=== PATIENT | female | born 2000 | race Caucasian/White ===

== ENCOUNTER 2020-10-30 21:58 | Emergency (ER) | payer SELFPAY ==
[~2020-10-30] VITALS: Ht 172.7 cm; Wt 76.0 kg
[2020-10-30 21:59] VITALS: BP 138/71
[2020-10-30] MEDS ORDERED: birth control tab PO (22:05)
== END 2020-10-31 02:15 | disposition left against medical advice (07) ==
LOC: M ED 21:58
DX: Z53.21 Procedure and treatment not carried out due to patient leaving prior to being seen by health care provider (principal)

== ENCOUNTER → 2020-11-23 | Outpatient (REF) | payer OTHER ==
[~2020-11-23] MED LIST: birth control tab PO
== END ==
LOC: M LAB REF 11:39
PROVIDERS: ATTEND Nurse Practitioner Family
DX: R30.0 Dysuria (principal)

== ENCOUNTER 2020-12-16 20:54 | Emergency (ER) | payer OTHER ==
[~2020-12-16] VITALS: Ht 172.7 cm; Wt 74.3 kg
[2020-12-16] MEDS ORDERED: VIST25CA PO (21:08)
[2020-12-16] MEDS ORDERED: PROZ10CA7 PO (21:08)
[2020-12-16 22:21] LABS: BASO % 0.3 % (0.0-1.0); EOS # 0.1 10^3/uL (0.0-0.5); EOS % 0.9 % (0.0-3.0); HEMATOCRIT 36.9 % (36.0-47.0); HEMOGLOBIN 11.7 g/dl (12.0-15.5); LYMPH # 2.1 10^3/uL (1.5-5.0); LYMPH % 35.4 % (24.0-44.0); MEAN CORPUSCULAR HEMOGLOBIN 26.4 pg (27.0-33.0); MEAN CORPUSCULAR HGB CONC 31.7 g/dl (32.0-36.5); MEAN CORPUSCULAR VOLUME 83.1 fl (80.0-96.0); MONO # 0.6 10^3/uL (0.0-0.8); MONO % 9.4 % (2.0-8.0); NEUTROPHILS # 3.2 10^3/uL (1.5-8.5); NEUTROPHILS % 53.8 % (36.0-66.0); PLATELET COUNT, AUTOMATED 272 10^3/uL (150-450); RED BLOOD COUNT 4.44 10^6/uL (4.00-5.40); WHITE BLOOD COUNT 5.9 10^3/uL (4.0-10.0)
[2020-12-16 22:51] LABS: ALBUMIN 3.9 GM/DL (3.2-5.2); ALT/SGPT 19 U/L (12-78); BILIRUBIN,DIRECT 0.1 MG/DL (0.0-0.2); BILIRUBIN,TOTAL 0.3 MG/DL (0.2-1.0); BLOOD UREA NITROGEN 7 MG/DL (7-18); CALCIUM LEVEL 8.9 MG/DL (8.5-10.1); CARBON DIOXIDE LEVEL 25 MEQ/L (21-32); CHLORIDE LEVEL 108 MEQ/L (98-107); CREATININE FOR GFR 0.85 MG/DL (0.55-1.30); GLUCOSE, FASTING 84 MG/DL (70-100); HCG, SERUM QUANTITATIVE < 1.0 MIU/ML; LIPASE 61 U/L (73-393); POTASSIUM SERUM 4.1 MEQ/L (3.5-5.1); SODIUM LEVEL 139 MEQ/L (136-145); TOTAL PROTEIN 7.7 GM/DL (6.4-8.2)
[2020-12-16] MEDS ORDERED: GI COCKTAIL 50ML BTL(HYOSCYAMINE/MAALOX/LIDOCAINE VISCOUS)(1:3:1) PO ONE (23:45)
[2020-12-16] MEDS ORDERED: ONDANSETRON 4 MG ORAL DISINTEGRATING TAB PO ONE (23:45)
[2020-12-17] MEDS ORDERED: ONDA4TAB6 PO (00:27)
[2020-12-17] MEDS ORDERED: PEPC1TAB5 PO (00:27)
[2020-12-17 00:47] VITALS: BP 116/68
== END 2020-12-17 00:50 | disposition home or self-care (01) ==
LOC: M ED 20:54
DX: K29.00 Acute gastritis without bleeding (principal)
CPT/HCPCS: 36415; 80048; 80076; 81001; 83690; 84702; 85025; 99283; Q0162

== ENCOUNTER → 2021-03-31 | Outpatient (CLI) | payer OTHER ==
[~2021-03-31] MED LIST changes: +ONDA4TAB6 PO; +PEPC1TAB5 PO; +PROZ10CA7 PO; +VIST25CA PO
--- NOTE | 2021-03-31 15:48 | REP ---
INDICATION: RT HIP PAIN, STRESS FX. Possible stress fracture. COMPARISON: No available comparison imaging. TECHNIQUE: And coronal T1 and fat sat T2 images of both hips are acquired. In addition smaller [id number] high-resolution axial, coronal, and sagittal T2 fat sat images are acquired. FINDINGS: Cortical and medullary bone signal intensity are normal in the proximal femurs bilaterally. There is no evidence to suggest proximal femoral stress fracture or avascular necrosis. Bone signal intensity is also normal in the visualized bony pelvic ring. There is no evidence of significant hip joint effusion on either side. No juxta-articular cyst or mass is seen. Ligamentum teres is intact in appearance. There is no evidence to suggest acetabular labral cartilage disruption. Head neck junction morphology is normal bilaterally. There is a tiny subcortical cyst at the head neck junction inferiorly and medially on the right, 3 mm in diameter. The uterus is tipped somewhat to the right. Normal right ovary is seen. Urinary bladder is unremarkable. Hamstring tendon insertion sites appear normal and symmetric. IMPRESSION: Tiny subcortical cysts noted incidentally at the head neck junction of the right proximal femur. No evidence to suggest stress fracture, avascular necrosis, or labral disruption. <Electronically signed by Nikhil Mcnally > 03/31/21 [id number]
== END ==
LOC: M PLARAD 09:32
PROVIDERS: ATTEND Technician, Other
DX: M85.651 Other cyst of bone, right thigh (principal)

== ENCOUNTER 2021-05-26 12:04 | Inpatient (IN) | payer OTHER ==
[~2021-05-26] VITALS: Ht 172.7 cm; Wt 74.3 kg
--- OUTSIDE RECORDS SUMMARY | 2021-05-26 12:11 | CCD ---
Author Author [facility] Organization [facility] Address Unknown Phone Unavailable Support Name Relationship Address Phone BLANCHE WU Next Of Kin [address] [place] [address] [facility] Next Of Kin [address] [place] [address] Unavailable Re-disclosure Warning The records that you are about to access may contain information from federally-assisted alcohol or drug abuse programs. If such information is present, then the following federally mandated warning applies: This information has been disclosed to you from records protected by federal confidentiality rules (42 CFR part 2). The federal rules prohibit you from making any further disclosure of this information unless further disclosure is expressly permitted by the written consent of the person to whom it pertains or as otherwise permitted by 42 CFR part 2. A general authorization for the release of medical or other information is NOT sufficient for this purpose. The Federal rules restrict any use of the information to criminally investigate or prosecute any alcohol or drug abuse patient.The records that you are about to access may contain highly sensitive health information, the redisclosure of which is protected by Article 27-F of the [facility] Public Health law. If you continue you may have access to information: Regarding HIV / AIDS; Provided by facilities licensed or operated by the [facility] Office of Mental Health; or Provided by the [facility] Office for People With Developmental Disabilities. If such information is present, then the following [facility] mandated warning applies: This information has been disclosed to you from confidential records which are protected by state law. State law prohibits you from making any further disclosure of this information without the specific written consent of the person to whom it pertains, or as otherwise permitted by law. Any unauthorized further disclosure in violation of state law may result in a fine or mcc sentence or both. A general authorization for the release of medical or other information is NOT sufficient authorization for further disc losure. Immunizations Vaccine Date Status Description Data Source(s) COVID-19 VACCINE Pfizer 12/27/2020 12:00:00 AM EDT completed [facility] Vaccine Series Complete: NOThis Data was Submitted to [facility] Via [email or web address]. Medications No Information Insurance Providers Payer name Policy type / Coverage type Policy ID Covered democrat ID Covered democrat's relationship to caldwell Policy Caldwell Plan Information [facility] ACTIVE DUTY [id number] SP [id number] SELF PAY ONLY UNK SP UNK Problems, Conditions, and Diagnoses No Information Surgeries/Procedures No Information Results No Information Social History No Information
[2021-05-26 12:42] LABS: HEMATOCRIT 39.6 % (36.0-47.0); HEMOGLOBIN 12.8 g/dl (12.0-15.5); MEAN CORPUSCULAR HEMOGLOBIN 28.3 pg (27.0-33.0); MEAN CORPUSCULAR HGB CONC 32.3 g/dl (32.0-36.5); MEAN CORPUSCULAR VOLUME 87.6 fl (80.0-96.0); PLATELET COUNT, AUTOMATED 311 10^3/uL (150-450); RED BLOOD COUNT 4.52 10^6/uL (4.00-5.40); WHITE BLOOD COUNT 7.4 10^3/uL (4.0-10.0)
[2021-05-26 13:14] LABS: AMPHETAMINES LEVEL URINE NEGATIVE (NEGATIVE); BARBITURATES URINE NEGATIVE (NEGATIVE); BENZODIAZEPINES URINE NEGATIVE (NEGATIVE); CANNABINOIDS URINE NEGATIVE (NEGATIVE); COCAINE METABOLITE URINE NEGATIVE (NEGATIVE); METHADONE URINE NEGATIVE (NEGATIVE); OPIATES URINE NEGATIVE (NEGATIVE); PHENCYCLIDINE URINE NEGATIVE (NEGATIVE)
[2021-05-26 13:25] LABS: ACETAMINOPHEN LEVEL < 2.0 UG/ML (10.0-30.0); ALBUMIN 3.9 GM/DL (3.2-5.2); ALT/SGPT 22 U/L (12-78); BILIRUBIN,DIRECT < 0.1 MG/DL (0.0-0.2); BILIRUBIN,TOTAL 0.3 MG/DL (0.2-1.0); BLOOD UREA NITROGEN 8 MG/DL (7-18); CARBON DIOXIDE LEVEL 27 MEQ/L (21-32); CHLORIDE LEVEL 109 MEQ/L (98-107); CREATININE FOR GFR 0.86 MG/DL (0.55-1.30); ETHYL ALCOHOL (ETHANOL) 0.006 % (0.000-0.010); GLUCOSE, FASTING 84 MG/DL (70-100); SALICYLATE LEVEL < 1.7 MG/DL (5.0-30.0); SODIUM LEVEL 142 MEQ/L (136-145); THYROID STIMULATING HORMONE 0.356 uIU/ML (0.463-3.98); TOTAL PROTEIN 7.8 GM/DL (6.4-8.2)
[2021-05-26] MEDS ORDERED: IBUPROFEN 600MG TAB PO ONE (13:45)
[2021-05-26 14:01] LABS: HCG, SERUM QUALITATIVE NEGATIVE (NEGATIVE)
--- OUTSIDE RECORDS SUMMARY | 2021-05-26 14:11 | CCD ---
Author Author [facility] Organization [facility] Address Unknown Phone Unavailable Support Name Relationship Address Phone BLANCHE WU Next Of Kin [address] [place] [address] [facility] Next Of Kin [address] [place] [address] Unavailable Re-disclosure Warning The records that you [...] is protected by Article 27-F of the [facility] Public Health law. If you continue you may have access to information: Regarding HIV / AIDS; Provided by facilities licensed or operated by the [facility] Office of Mental Health; or Provided by the [facility] Office for People With Developmental Disabilities. If such information is present, then the following [facility] mandated warning applies: This information has been [...] law may result in a fine or retirement sentence or both. A general authorization for the release of medical or other information is NOT sufficient authorization for further disc losure. Immunizations Vaccine Date Status Description Data Source(s) COVID-19 VACCINE Pfizer 12/27/2020 12:00:00 AM EDT completed [facility] Vaccine Series Complete: NOThis Data was Submitted to [facility] Via [employer]. Medications No Information Insurance Providers Payer name Policy type / Coverage type Policy ID Covered alliance party ID Covered alliance party's relationship to caldwell Policy Caldwell Plan Information [facility] ACTIVE DUTY [id number] SP [id number] SELF PAY ONLY UNK SP UNK Problems, Conditions, and Diagnoses No Information Surgeries/Procedures No Information Results No Information Social History No Information
[2021-05-26] MEDS ORDERED: HOME MED LIST COMPLETE! XX SCH (18:25)
--- NOTE | 2021-05-26 18:57 | MHIPNPDOC ---
[facility] Progress Note Progress Note DATE OF SERVICE: 05/26/21 Patient presented by PSA, meets criteria for involuntary admission. Brought in by EMS from [facility] appointment endorsed suicidal ideation with intent and plan to overdose on OTC medications. See PSA note for details. Vital Signs Vital Signs Date Time Temp Pulse Resp B/P (MAP) Pulse Ox O2 Delivery O2 Flow Rate FiO2 05/26/21 18:13 97.5 64 16 125/60 (81) 100 Room Air Laboratory Data 24H Labs Laboratory Tests 2 05/26/21 12:15: Nucleated Red Blood Cells % (auto) 0.0, Anion Gap 6L, Calcium Level 9.0, Total Bilirubin 0.3, Direct Bilirubin < 0.1, Aspartate Amino Transf (AST/SGOT) 17, Alanine Aminotransferase (ALT/SGPT) 22, Alkaline Phosphatase 54, Total Protein 7.8, Albumin 3.9, Albumin/Globulin Ratio 1.0L, Thyroid Stimulating Hormone (TSH) 0.356L, Human Chorionic Gonadotropin, Qual NEGATIVE, Salicylates Level < 1.7L, Urine Opiates Screen NEGATIVE, Urine Methadone Screen NEGATIVE, Acetaminophen Level < 2.0L, Urine Barbiturates Screen NEGATIVE, Urine Phencyclidine Screen NEGATIVE, Urine Amphetamines Screen NEGATIVE, Urine Benzodiazepines Screen NEGATIVE, Urine Cocaine Metabolite Screen NEGATIVE, Urine Cannabinoids Screen NEGATIVE, Ethyl Alcohol Level 0.006 CBC/BMP Laboratory Tests 05/26/21 12:15 Current Medications Current Medications Medications (Trade) Dose Ordered Sig/Audra Route PRN Reason Start Time Stop Time Status Last Admin Dose Admin Home Med (Home Med List Complete!) ASDIRECTED XX 05/26/21 18:25 05/26/21 18:24 DC Allergies Coded Allergies: No Known Allergies (Unverified , 10/30/20) PITO CHILDS MD May 26, 2021 18:57
--- NOTE | 2021-05-27 06:57 | ECGEPIP ---
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
[2021-05-27 16:30] LABS: RSV AMPLIFICATION NEGATIVE (NEGATIVE)
[2021-05-28] MEDS ORDERED: ACETAMINOPHEN TAB 650MG DOSE (2X325MG) PO PRN (00:15)
[2021-05-28] MEDS ORDERED: MOM 30ML SUSPENSION UDC PO PRN (00:15)
[2021-05-28] MEDS ORDERED: MAALOX 30 ML SUSP *UDC PO PRN (00:15)
[2021-05-28] MEDS ORDERED: traZODone 50 MG TAB PO PRN (00:15)
--- OUTSIDE RECORDS SUMMARY | 2021-05-28 00:43 | CCD ---
Author Author [facility] Organization [facility] Address Unknown Phone Unavailable Support Name Relationship Address Phone BLANCHE WU Next Of Kin [address] [place] [address] [facility] Next Of Kin [address] [place] [address] Unavailable Re-disclosure Warning The records that you [...] is protected by Article 27-F of the [facility] Public Health law. If you continue you may have access to information: Regarding HIV / AIDS; Provided by facilities licensed or operated by the [facility] Office of Mental Health; or Provided by the [facility] Office for People With Developmental Disabilities. If such information is present, then the following [facility] mandated warning applies: This information has [...] Series Complete: NOThis Data was Submitted to [facility] Via [employer]. Medications No Information Insurance Providers Payer name Policy type / Coverage type Policy ID Covered alliance party ID Covered alliance party's relationship to caldwell Policy Caldwell Plan Information [facility] ACTIVE DUTY [id number] SP [id number] SELF PAY ONLY UNK SP UNK Problems, Conditions, and Diagnoses No Information Surgeries/Procedures No Information Results No Information Social History No Information
[2021-05-28 03:20] VITALS: BP 128/59
[2021-05-28] MEDS ORDERED: NICOTINE POLACRILEX 2 MG GUM PO PRN (09:00)
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
[2021-05-28] MEDS: VENLAFAXINE **XR** 37.5 MG CAPSULE PO SCH (09:55)
[2021-05-28 18:38] VITALS: BP 119/73
[2021-05-29] MEDS: VENLAFAXINE **XR** 37.5 MG CAPSULE PO SCH (08:37)
[2021-05-29 10:32] LABS: FREE T4 1.34 NG/DL (0.78-1.33); THYROID STIMULATING HORMONE 0.558 uIU/ML (0.463-3.98)
--- NOTE | 2021-05-29 13:43 | MHIPNPDOC ---
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 Patient reports stressors including issues with leadership being "toxic", hectic work schedule, states family unsupportive and "make fun of me for asking for help", reports being overwhelmed and go to the point where she wanted to take her life by overdosing on OTC pills. Patient was seen by [facility], by therapist Lt. Rhoades who is new and made suicidal statements and was brought in by [facility], states "I will never tell them again, since I will be brought here". Also reports "I don't want to leave my room, because I don't like people, they always push me to go out and do things". States she doesn't like people because they are going to abandon her or disappoint her. Reports mother was "not there mentally" nd father was always working so never home, states she had to take care of household. Reports had one suicide attempt 10 months ago by overdose on Quil and didn't tell anyone, "nobody knows". Interval: Charts reviewed, patient has not been attending groups, states she prefers to stay in her room and read her book, does not think the increase will be helpful for her, states having space away from her leadership has helped calm her mood, also feels she is responding well to medications without any side effects reported, " I actually like it how makes me feel". States being here is giving her space to think about how she does not reach out to her supports and should do so, was encouraged to attend groups. Reports mood and appetite are good, no acute physical complaints. VITAL SIGNS: See below. NEW TEST RESULTS: Repeat TSH within normal limits, T4 borderline at 1.34, denies any increased agitation. CURRENT MEDICATIONS: See below. MENTAL STATUS EXAMINATION: Patient is a 20-year old female, who is in no acute distress, good hygiene, good eye contact Speech: Is normal rate rhythm and volume. Language skills are good Thought processes including: Linear and logical, future oriented. Thought content: Denies suicidal thoughts today. Abstract reasoning, and computation: Good description of associations: Good Description of abnormal or psychotic thoughts: Denies Judgment: Improving. Insight: Fair Orientation: x4 Recent and remote memory: Good. Attention span and concentration: Within normal limits. Language: Azeri. Fund of knowledge: Average based on interview. Mood: "better". Affect: Mildly irritable, full, mood congruent, appropriate. DIAGNOSES: Major depressive disorder, recurrent, moderate Unspecified personality disorder, cluster A/B traits Tobacco use disorder R/O hypothyroidism ASSESSMENT: Patient appears less dysthymic, still somewhat irritable, reports improvement in mood and anxiety symptoms in context of having time away from her unit and leadership. Today is not endorsing suicidal ideations and reporting good response to medication without side effects, which she plans on continuing, but has not been attending groups and was encouraged to do so, if continues to improve there is a possibility for discharge tomorrow or midweek. There is a possibility patient might be minimizing symptoms, and further evaluation is needed to assure safety and adequate safety planning. MANAGEMENT PLAN: Continue medications, no changes. TIME SPENT: 15 minutes. Vital Signs Vital Signs Date Time Temp Pulse Resp B/P (MAP) Pulse Ox O2 Delivery O2 Flow Rate FiO2 05/28/21 18:38 99.2 75 16 119/73 (88) 05/28/21 03:20 99 Room Air Laboratory Data 24H Labs Laboratory Tests 2 05/29/21 09:41: Thyroid Stimulating Hormone (TSH) 0.558, Free Thyroxine 1.34H Current Medications Current Medications Medications (Trade) Dose Ordered Sig/Audra Route PRN Reason Start Time Stop Time Status Last Admin Dose Admin Acetaminophen (Tylenol Tab) 650 mg Q6HP PRN PO HEADACHE or MILD DISCOMFORT 05/28/21 00:15 Al Hydrox/Mg Hydrox/Simethicone (Mylanta) 30 ml Q4HP PRN PO HEARTBURN/INDIGESTION 05/28/21 00:15 Home Med (Home Med List Complete!) ASDIRECTED XX 05/26/21 18:25 05/26/21 18:24 DC Magnesium Hydroxide (Milk Of Magnesia) 30 ml DAILYPRN PRN PO CONSTIPATION 05/28/21 00:15 Nicotine (Nicorette) 2 mg Q4HP PRN PO NICOTINE WITHDRAWAL 05/28/21 09:00 Trazodone HCl (Desyrel) 50 mg QHSP PRN PO INSOMNIA 05/28/21 00:15 Venlafaxine HCl (Effexor Xr) 37.5 mg DAILY PO 05/28/21 09:00 05/29/21 08:37 Allergies Coded Allergies: No Known Allergies (Unverified , 10/30/20) PITO CHILDS MD May 29, 2021 13:43
[2021-05-29 16:08] VITALS: BP 109/62
--- NOTE | 2021-05-29 20:35 | HPEPDOC ---
General Date of Admission May 28, 2021 at 00:15 Date of Service: May 29, 2021 Chief Complaint The patient is a 20-year-old female admitted with a reason for visit of Unspecified Depressive Disorder. 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 She is being examined here for medical history and physical. Denied any medical complaints. Home Medications No Active Prescriptions or Reported Meds Allergies Coded Allergies: No Known Allergies (Unverified , 10/30/20) Past Medical History Medical History Anxiety, depression with 1 suicidal attempt, PTSD. Surgical History none Family History Mother with addiction to pain meds and psychiatric problems. Social History * Smoker: other (vape) Alcohol: Denies Drugs: denies A-FIB/CHADSVASC A-FIB History Current/History of A-Fib/PAF?: No Age/Risk Factor Scoring CHADSVASC: CHADSVASC Response (Comments) Value Age Risk Factor Age < 65 years old 0 Gender Risk Factor Female 1 Hx of CHF No 0 Hx of HTN No 0 Hx of Stroke/TIA/or VTE No 0 Hx of Diabetes No 0 Hx of Vascular Disease No 0 Total 1 Review of Systems Constitutional: Denies: Chills, Fever, Night Sweats Eyes: Denies: Pain, Vision change ENT: Denies: Head Aches, Ear Pain, Dysphagia Skin: Denies: Rash, Lesions, Breakdown Pulmonary: Denies: Dyspnea, Cough Cardiovascular: Denies: Chest Pain, Palpitations, Orthopnea, Paroxysmal Noc. Dyspnea, Lt Headedness Gastrointestinal: Denies: Nausea, Vomiting, Abdominal Pain, Diarrhea Psych: Reports: Depression Physical Examination General Exam: Positive: Alert, Cooperative, No Acute Distress Eye Exam: Positive: PERRLA, Conjunctiva & lids normal, EOMI; Negative: Sclera icteric ENT Exam: Positive: Atraumatic, Mucous membr. moist/pink, Pharynx Normal Neck Exam: Positive: Supple; Negative: JVD, thyromegaly Chest Exam: Positive: Clear to auscultation, Normal air movement Heart Exam: Positive: Rate Normal, Regular Rhythm, Normal S1, Normal S2; Negative: Murmurs, Rubs Abdomen Exam: Positive: Normal bowel sounds, Soft; Negative: Tenderness Extremity Exam: Negative: Clubbing, Cyanosis, Edema Psych Exam: Positive: Memory Intact, Oriented x 3 Vital Signs Vital Signs Date Time Temp Pulse Resp B/P (MAP) Pulse Ox O2 Delivery O2 Flow Rate FiO2 05/29/21 16:08 97.6 75 16 109/62 (78) 98 Room Air Laboratory Data Labs 24H Laboratory Tests 2 05/29/21 09:41: Thyroid Stimulating Hormone (TSH) 0.558, Free Thyroxine 1.34H Assessment/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 She is being examined here for medical history and physical. Depression As per psychiatry No active medical issues at this time. Plan / VTE VTE Prophylaxis Ordered?: No (freely ambulatory. ) Melany Parkinson MD May 29, 2021 20:23
[2021-05-30 06:13] VITALS: BP 110/61
[2021-05-30] MEDS: VENLAFAXINE **XR** 37.5 MG CAPSULE PO SCH (08:05)
[2021-05-30] MEDS ORDERED: VENL37.598 PO (08:24)
[2021-05-30] MEDS ORDERED: NICO2GUM PO (08:24)
[2021-05-30] MEDS ORDERED: TRAZ-252 PO (08:24)
--- NOTE | 2021-05-30 14:14 | MHDSPDOC ---
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 Patient reports stressors including issues with leadership being "toxic", hectic work schedule, states family unsupportive and "make fun of me for asking for help", reports being overwhelmed to the point where she wanted to take her life by overdosing on OTC pills. Patient was seen by [facility], by therapist Lt. Rhoades who is new and made suicidal statements and was brought in by [facility], states "I will never tell them again, since I will be brought here". Also reports "I don't want to leave my room, because I don't like people, they always push me to go out and do things". States she doesn't like people because they are going to abandon her or disappoint her. Reports mother was "not there mentally" and father was always working so never home, states she had to take care of household. Reports had one suicide attempt 10 months ago by overdose on 10 NyQuil and didn't tell anyone, "nobody knows". Vital signs: See below Consultants involved: See medical H&P by hospitalist Treatment and progress on the unit: Patient was admitted to the [facility] on a legal status and was afforded the following treatment modalities: 1. Individual therapy 2. Group therapy 3. Medication management 4. Milieu therapy 5. Safe environment Hospital course: Patient was admitted to the [facility] on a legal status. Was medically cleared prior to coming up to the [facility]. Patient initially reported symptoms of low mood, inadequate sleep, no energy, anhedonia, suicidal thoughts in context of stressors at work, also reporting similar symptoms a 10 months ago. Patient was started on Effexor 37.5 mg extended release, reported having some time away from leadership, started the medication going to groups, gain coping skills and wearing identify supports before she gets back to that point has been helpful for her and she has not been having suicidal thoughts after admission. Denies any medication side effects and found medications beneficial and tolerated them well. Denies mood anxiety and intrusive thoughts which improved with treatment. Patient attended groups daily during stay. Patient symptoms improved with treatment. On day of discharge patient denied depression, anxiety, insomnia, suicidal or homicidal ideations intent or plan, hallucinations, delusions. Patient was discharged home with follow-up. Patient felt safe for discharge. Was offered continued stay on voluntary admission but refused. Safety plan created to address thoughts of ingestion and overdose, to reduce [place] to pill collections, medicated liquid such as NyQuil or [id number] medications. Discharge assessment: On today's interview patient is alert and oriented, dressed appropriately. She is bubbly, smiling and was interacting with her roommate before entering the room, has been seen in the social media interacting socially laughing and playing games, has been going to most of her groups. States she was frustrated on admission due to the situation and that she would reach out to her sports good leadership if she was feeling suicidal and that those statements about not talking to others were made out of anger and frustration on admission. She has felt a benefit for inpatient stay. Hygiene and grooming is well-kept. Smiles on approach and is pleasant and engaged on interview. Denies depression and anxiety. Denies suicidal homicidal ideation, intent or planning. Denies and is not observed with celso or psychotic symptoms of delusions, hallucinations, bizarre thinking, obsessions, paranoia, ruminations, illogical thoughts, flight of ideas or having poor insight or judgment. Patient has normal mentation, declines further hospitalization of voluntary status and meets criteria for discharge today, patient encouraged to return the hospital if symptoms worsen or change and encouraged to call unit if they feel they need provider's questions to be answered or help with medications or care. Mental status: Patient is a 20-year old female, who is in no acute distress, good hygiene, good eye contact, hospital clothing with good hygiene Speech: Is normal rate rhythm and volume. Language skills are good Thought processes including: Linear and logical, future oriented. Thought content: Denies suicidal thoughts, intent or plan. Denies any homicidal thoughts, intent or plan. abstract reasoning, and computation: Good description of associations: Good Description of abnormal or psychotic thoughts: Denies Judgment: Good Insight: Good Orientation: x4 Recent and remote memory: Good. Attention span and concentration: Within normal limits. Language: Greenlandic. Fund of knowledge: Average based on interview. Mood: "good". Affect: Bubbly, smiling, mood congruent, full, appropriate Medications on discharge: see medication reconciliation: CSSRS on discharge: Wish to be : No nonspecific active suicidalthoughts: No lifetime attempts: 1x 10 months ago by Nolan Greenwood interrupted attempts: 0 aborted attempts: 0 preparatory acts or behavior: None Taking into consideration safety state, status, modifiable, non-modifiable risk factors patient is at low risk on discharge for suicide according to [place] suicide evaluation. PLAN/FOLLOWUP ARRANGEMENTS: Follow Up Care Education Label * Mental Health Appt 1 * Additional information [facility]/DRUM1 LEE JURADO [id number] FTR/30 [facility] CL/DRUM1 HEBER NGUYEN [id number]@0801 FTR/60 [facility] CL/DRUM1 ABDIEL MCCARTHY [id number]@0915 FTR/30 [facility] CL/DRUM1 HEBER NGUYEN [id number]@0801 FTR/60 [facility] CL/DRUM1 HEBER NGUYEN [id number]@0801 FTR/60 [facility] CL/DRUM1 HEBER NGUYEN [id number]@1430 FTR/60 [facility] CL/DRUM1 CHERELLE RHOADES [id number]@0900 FTR/60 PENDING Follow Up Care Education Label * Medical * Medical Follow Up [facility] * Established With This Provider Yes * Therapist . URVASHI * Date Jun 02, 2021 * Time 10:40 * Address of Clinic or Practice [facility]/ [address] * The amount of time spent in the coordination of care for this patient was approximately 25 minutes. ETOH/Disorder Med Rx ETOH/DRUG DISORDER RX: Offrd @ d/c & pt refused Vital Signs/I&Os Vital Signs Date Time Temp Pulse Resp B/P (MAP) Pulse Ox O2 Delivery O2 Flow Rate FiO2 05/30/21 06:13 97.5 67 12 110/61 (77) 100 Room Air Medications Scheduled Venlafaxine HCl (Venlafaxine HCl ER) 37.5 Mg Cap.er.24h, 37.5 MG PO DAILY for depression, #7 Scheduled PRN Nicotine Polacrilex (Nicotine Gum) 2 Mg Gum, 2 MG PO Q4HP PRN for NICOTINE WITHDRAWAL, #21 Trazodone HCl (Trazodone HCl) 50 Mg Tablet, 50 MG PO QHSP PRN for INSOMNIA, #7 Allergies Coded Allergies: No Known Allergies (Unverified , 10/30/20) PITO CHILDS MD May 30, 2021 14:14
== END 2021-05-30 12:30 | disposition home or self-care (01) | DRG 885 ==
LOC: M ED 12:04 → M ED INP 05-28 00:15 → M PSY 05-28 02:30
PROVIDERS: ADMIT Student in an Organized Health Care Education/Training Program; ATTEND Student in an Organized Health Care Education/Training Program
DX: F33.1 Major depressive disorder, recurrent, moderate (principal); R45.851 Suicidal ideations; E03.9 Hypothyroidism, unspecified; F17.200 Nicotine dependence, unspecified, uncomplicated; Z73.1 Type A behavior pattern

== ENCOUNTER 2022-03-04 15:01 | Outpatient (CLI) | payer OTHER ==
[~2022-03-04] VITALS: Ht 172.7 cm; Wt 96.0 kg
[~2022-03-04 15:01] MED LIST changes: +NICO2GUM PO; +TRAZ-252 PO; +VENL37.598 PO
[2022-03-04] MEDS ORDERED: PRENTAB9 PO (15:30)
[2022-03-04] MEDS ORDERED: ACET325C5 PO (15:30)
[2022-03-04] MEDS ORDERED: ZOLO25TA PO (15:31)
[2022-03-04] MEDS ORDERED: TUMS750C22 PO (15:31)
[2022-03-04] MEDS ORDERED: HOME MED LIST COMPLETE! XX SCH (15:35)
[2022-03-04 15:38] VITALS: BP 133/65
[2022-03-04 16:36] LABS: HEMATOCRIT 30.6 % (36.0-47.0); HEMOGLOBIN 9.6 g/dl (12.0-15.5); MEAN CORPUSCULAR HEMOGLOBIN 25.7 pg (27.0-33.0); MEAN CORPUSCULAR HGB CONC 31.4 g/dl (32.0-36.5); PLATELET COUNT, AUTOMATED 318 10^3/uL (150-450); RED BLOOD COUNT 3.73 10^6/uL (4.00-5.40); WHITE BLOOD COUNT 7.4 10^3/uL (4.0-10.0)
== END 2022-03-04 17:40 | disposition home or self-care (01) ==
LOC: M LDO 15:01
PROVIDERS: ATTEND Obstetrics & Gynecology
DX: O9A.213 Injury, poisoning and certain other consequences of external causes complicating pregnancy, third trimester (principal); T14.8XXA Other injury of unspecified body region, initial encounter; Z3A.36 36 weeks gestation of pregnancy; O99.820 Streptococcus B carrier state complicating pregnancy; O99.343 Other mental disorders complicating pregnancy, third trimester; F43.10 Post-traumatic stress disorder, unspecified; Z79.899 Other long term (current) drug therapy
CPT/HCPCS: 36415; 59025; 85027; 85460; G0463

== ENCOUNTER 2022-03-05 12:38 | Outpatient (CLI) | payer OTHER ==
[~2022-03-05] VITALS: Ht 172.7 cm; Wt 96.0 kg
[~2022-03-05 12:38] MED LIST changes: +ACET325C5 PO; +PRENTAB9 PO; +TUMS750C22 PO; +ZOLO25TA PO
[2022-03-05 12:51] VITALS: BP 100/59
[2022-03-05 14:19] LABS: HEMATOCRIT 30.1 % (36.0-47.0); HEMOGLOBIN 9.7 g/dl (12.0-15.5); MEAN CORPUSCULAR HEMOGLOBIN 26.3 pg (27.0-33.0); MEAN CORPUSCULAR HGB CONC 32.2 g/dl (32.0-36.5); MEAN CORPUSCULAR VOLUME 81.6 fl (80.0-96.0); PLATELET COUNT, AUTOMATED 304 10^3/uL (150-450); RED BLOOD COUNT 3.69 10^6/uL (4.00-5.40); WHITE BLOOD COUNT 8.7 10^3/uL (4.0-10.0)
[2022-03-05] MEDS ORDERED: FLUCONAZOLE 50MG TABLET PO ONE (14:20)
[2022-03-05 14:39] LABS: INR 0.94
[2022-03-05 14:40] LABS: PARTIAL THROMBOPLASTIN TIME 27.8 SECONDS (25.9-37.0)
== END 2022-03-05 16:39 | disposition home or self-care (01) ==
LOC: M LDO 12:38
PROVIDERS: ATTEND Obstetrics & Gynecology
DX: O46.93 Antepartum hemorrhage, unspecified, third trimester (principal); Z3A.36 36 weeks gestation of pregnancy
CPT/HCPCS: 36415; 59025; 76815; 76820; 85027; 85384; 85610; 85730; G0378; G0463

== ENCOUNTER → 2022-08-01 | Outpatient (CLI) | payer OTHER | LOC: M RAD 08:26 | PROVIDERS: ATTEND Technician, Other | DX: M51.36 Other intervertebral disc degeneration, lumbar region (principal) ==